=== PATIENT | female | born 2000 | race Caucasian/White ===

== ENCOUNTER 2024-07-30 20:21 | Outpatient (REF) | payer BC, SELFPAY ==
[2024-08-05 15:08] LABS: Age Gdln ACOG Testing Note (.); IGP, rfx Aptima HPV ASCU Note (.)
== END 2024-07-30 20:22 | disposition home or self-care (01) ==
LOC: LAB 20:21
PROVIDERS: Family Provider Family Medicine; Visit Provider Physician Assistant
DX: Z01.419 Encounter for gynecological examination (general) (routine) without abnormal findings (principal)
CPT/HCPCS: 88175

== ENCOUNTER 2025-04-29 09:29 | Outpatient (OUT) | payer BC, SELFPAY ==
--- OUTSIDE RECORDS SUMMARY | 2023-11-29 04:45 | XMS_ITS ---
Author Organization [facility] Servic es Address [address] [place] [address] Care Team Providers Care Yardmaster Name Role Phone Brittany Callaway Primary Care Provider [phone] Susan Resendiz [phone] REASON FOR VISIT 2 month follow up Encounters Encounter Location Date Provider Diagnosis [facility] Services [address] [place] [address] 11/29/2023 Brittany Callaway Plan Of Treatment No Information Progress Notes * NICOLE CHOUDHURYDOB:2000 (25 yo F)Acc No.[id number]:11/29/2023 Behavioral Health Patient: NICOLE GIBBS Provider:?Brittany CallawayDOB:2000???Age:23 Y ???Sex:FemaleDate:11/29/2023hone:[phone]:[address] [place], [place] Subjective: * Chief Complaints: * 2 month follow up Billing Information: * Procedure Codes: * Electronic signature of JEY Rizvi on 04/29/2025 at 08:17 AM ESTSign off status: Pending * Appointment Provider: Lakesha Callaway Date: 0 11/29/2023 Generated for Printing/Faxing/eTransmitting on:?04/29/2025 08:17 AM EST
--- OUTSIDE RECORDS SUMMARY | 2023-12-11 11:15 | XMS_ITS ---
Author Organization [facility] Servic es Address [address] [place] [address] Care Team Providers Care Injection Molding Machine Setter Name Role Phone Brittany Callaway Primary Care Provider [phone] Susan Resendiz [phone] REASON FOR VISIT rs from 11/28 2 mo f/u Encounters Encounter Location Date Provider Diagnosis [facility] Services [address] [place] [address] 12/11/2023 rBittany Callaway Plan Of Treatment No Information Progress Notes * ANGELA CHOUDHURY:2000 (25 yo F)Acc No.[id number]:12/11/2023 Behavioral Health Patient: NICOLE GIBBS Provider:Niya SotoB:2000???Age:23 Y ???Sex:FemaleDate:12/11/2023hone:[phone]:[address] [place], [place] Subjective: * Chief Complaints: * R s from 11/28 2 mo f/u Billing Information: * Procedure Codes: * Electronic signature of JEY Rizvi on 04/29/2025 at 08:17 AM ESTSign off status: Pending * Appointment Provider: Lakesha Callaway Date: 0 12/11/2023 Generated for Printing/Faxing/eTransmitting on:?04/29/2025 08:17 AM EST
--- OUTSIDE RECORDS SUMMARY | 2024-02-07 03:45 | XMS_ITS ---
Author Organization [facility] Servic es Address [address] [place] [address] Care Team Providers Care Corn Grower Name Role Phone Brittany Callaway Primary Care Provider Susan Resendiz [phone] REASON FOR VISIT 2 month followup Encounters Encounter Location Date Provider Diagnosis [facility] Services [address] [place] [address] 02/07/2024 Brittany Callaway Plan Of Treatment No Information Progress Notes * NICOLE CHOUDHURYDOB:2000 (25 yo F)Acc No.[id number]:02/07/2024 Behavioral Health Patient: NICOLE GIBBS Provider:?Brittany CallawayDOB:2000???Age:23 Y ???Sex:FemaleDate:4Phone:[phone]:[address] [place], [place] Subjective: * Chief Complaints: * 2 month followup Billing Information: * Procedure Codes: * Electronic signature of JEY Rizvi on 04/29/2025 at 08:17 AM ESTSign off status: Pending * Appointment Provider: Lakesha Callaway Date: 0 02/07/2024 Generated for Printing/Faxing/eTransmitting on:?04/29/2025 08:17 AM EST
--- OUTSIDE RECORDS SUMMARY | 2024-02-13 05:15 | XMS_ITS ---
Author Organization [facility] Servic es Address [address] [place] [address] Care Team Providers Care Law Researcher Name Role Phone Brittany Callaway Primary Care Provider Susan Resendiz [phone] REASON FOR VISIT BH F/U Encounters Encounter Location Date Provider Diagnosis [facility] Services [address] [place] [address] 02/13/2024 Brittany Callaway Plan Of Treatment No Information Progress Notes * NICOLE CHOUDHURYDOB:2000 (25 yo F)Acc No.[id number]:02/13/2024 Behavioral Health Patient: NICOLE GIBBS Provider:?Brittany CallawayDOB:2000???Age:23 Y ???Sex:FemaleDate:02/13/2024hone:[phone]:[address] [place], [place] Subjective: * Chief Complaints: * B H F/U Billing Information: * Procedure Codes: * Electronic signature of JEY Rizvi on 04/29/2025 at 08:17 AM ESTSign off status: Pending * Appointment Provider: Lakesha Callaway Date: 0 02/13/2024 Generated for Printing/Faxing/eTransmitting on:?04/29/2025 08:17 AM EST
--- OUTSIDE RECORDS SUMMARY | 2025-04-29 08:30 | XMS_ITS | Encounter Summary ---
Author Organization [facility] Address [address] [place] [facility] [place] [address] Care Team Providers Care Softball Core Molder Name Role Phone Hanane Antonio MD Primary Care Provider [phone] Brittany Calderon SCOOPING MACHINE TENDER Unavailable [phone] Reason for Visit * ReasonCommentsDysmenorrhea Encounter Details DateTypeDepartmentCare Team (Latest Contact Info)Vuiyflwfgic62/05/2025 8:30 AM ESTOffice Visit [facility]OMDe[facility] [address] [address] Bebe Bishop PA [address] [facility] [address] [place], [place] [id number] Dysmenorrhea; Menorrhagia with regular cycle Social History Tobacco UseTypesPacks/DayYears UsedDateSmoking Tobacco: NeverSmokeless Tobacco: NeverAlcohol UseStandard Drinks/WeekCommentsYes2 (1 standard drink = 0.6 oz pure alcohol)Humiliation, Afraid, Rape, and Kick questionnaireAnswerDate Recorded Within the last year, have you been afraid of your partner or ex-partner?No 06/12/2023Within the last year, have you been humiliated or emotionally abused in other ways by your partner or ex-partner?No06/12/2023Within the last year, have you been kicked, hit, slapped, or otherwise physically hurt by your partner or ex-partner?No06/12/2023Within the last year, have you been raped or forced to have any kind of sexual activity by your partner or ex-partner?No06/12/2023 Social Connection and Isolation PanelAnswerDate RecordedIn a typical week, how many times do you talk on the phone with family, friends, or neighbors?More than three times a week06/12/2023How often do you get together with friends or relatives?Twice a week06/12/2023How often do you attend pentecostalism or jew services?More than 4 times per year06/12/2023o you belong to any clubs or organizations such as pentecostalism groups, unions, fraternal or athletic groups, or school groups?No06/12/2023How often do you attend meetings of the clubs or organizations you belong to?Never06/12/2023re you , , , , never , or living with a partner?Patient ngnznhco22/19/2023 AUDIT-CAnswerDate RecordedQ1: How often do you have a drink containing alcohol? 2-4 times a month06/12/2023Q2: How many drinks containing alcohol do you have on a typical day when you are drinking?3 or Q3: How often do you have six or more drinks on one occasion?Less than hhqgqjy9406/12/2023Overall Financial Resource Strain (CARDIA)AnswerDate RecordedHow hard is it for you to pay for the very basics like food, housing, medical care, and heating?Not hard at all 06/12/2023HQ-2AnswerDate RecordedPatient Health Questionnaire-2 Score0 06/12/2023Fincentral [facility] medical center [place] of Occupational Health - Occupational Stress QuestionnaireAnswerDate RecordedDo you feel stress - tense, restless, nervous, or anxious, or unable to sleep at night because yourmind is troubled all the time - these days?Only a meiynz7706/12/2023Exercise Vital SignAnswerDate Recorded On average, how many days per week do you engage in moderate to strenuous exercise (like a brisk walk)?5 days06/12/2023On average, how many minutes do you engage in exercise at this level?90 min06/12/2023Hunger Vital SignAnswerDate RecordedWithin the past 12 months, you worried that your food would run out before you got the money to buymore.Never true06/12/2023Within the past 12 months, the food you bought just didn't last and you didn't have money to get more.Never true06/12/2023RAPARE - TransportationAnswerDate RecordedIn the past 12 months, has lack of transportation kept you from medical appointments or from getting medications?No06/12/2023In the past 12 months, has lack of transportation kept you from meetings, work, or from getting things needed for daily living?No06/12/2023Housing Stability Vital SignAnswerDate RecordedIn the last 12 months, was there a time when you were not able to pay the mortgage or rent on time?No06/12/2023In the last 12 months, how many places have you lived?1 06/12/2023In the last 12 months, was there a time when you did not have a steady place to sleep or slept in [facility] (including now)?No06/12/2023Comments NoSex and Gender InformationValueDate RecordedSex Assigned at BirthFemale 08/06/2023 11:59 AM ESTLegal DimGydvvk57/15/2023 7:05 PM EDTGender Identity Jrxsdv2709/06/2022 7:05 PM EDTSexual OlzmdshdafaTsbjcowe03/12/2024 11:59 AM EST documented as of this encounter Last Filed Vital Signs Vital SignReadingTime TakenCommentsBlood Mmsmhntv616/6004/29/2025 8:28 AM EST Pulse--Temperature--Respiratory Rate--Oxygen Saturation--Inhaled Oxygen Concentration--Fzxgaa15.9 kg (136 lb 8 oz)04/29/2025 8:28 AM ESTHeight--Body Mass Index20.7507 1:03 PM EDTdocumented in this encounter Plan of Treatment DateTypeDepartmentCare Team (Latest Contact Info)Zberdzjryms02/09/2026 10:00 AM ESTOffice Visit [facility] [address] [address] Bebe Bishop PA [address] [facility] [facility] [place] [address] NameTypePriorityAssociated DiagnosesOrder ScheduleCBC and differentialLabRoutine Menorrhagia with regular cycle Ordered: 04/29/2025TSHLabRoutine Menorrhagia with regular cycle Ordered: 04/29/2025hCG, quantitative, pregnancyLabRoutine Menorrhagia with regular cycle Ordered: 04/29/2025Protime-INRLabRoutine Menorrhagia with regular cycle Ordered: 04/29/2025T4, freeLabRoutine Menorrhagia with regular cycle Ordered: 04/29/2025PTTLabRoutine Menorrhagia with regular cycle Expected: 04/29/2025 (Approximate), Expires: 04/29/2026Hemoglobin Q4aVvzTvfbono Menorrhagia with regular cycle Ordered: 04/29/2025US Pelvis w/ TVImagingRoutine Menorrhagia with regular cycle Expected: 04/29/2025, Expires: 04/29/2026documented as of this encounter Visit Diagnoses Diagnosis Dysmenorrhea Menorrhagia with regular cycle documented in this encounter Additional Health Concerns AssessmentNoted TimePHQ-9 Depression Total Score: 10:56 AM EST documented as of this encounter Care Teams Team MemberRelationshipSpecialtyStart DateEnd Hanane Antonio MD [address] [place] [address] PCP - GeneralFamily Medicine10/31/22 Brittany Calderon NP [address] [place] [address] Nurse PractitionerFamily Medicine02/19/25documented as of this encounter
--- OUTSIDE RECORDS SUMMARY | 2025-04-29 09:37 | XMS_ITS | Clinical Summary ---
Author Organization [facility] Address [address] [facility] [place] [address] Care Team Providers Care Body Former Name Role Phone Hanane Antonio MD Primary Care Provider Brittany Calderon CIRCULATION ASSISTANT Unavailable [phone] Allergies Active AllergyReactionsCriticalityNoted OaffLwcxeqjaFonkhqwbieKaxmPon93/24/2023 Medications No known medications Active Problems ProblemNoted DateDiagnosed GgujOagffqq31/19/2023islocation of left patella 06/12/2023ttention deficit hyperactivity disorder, combined type06/12/2023 Recurrent major depressive disorder, in partial xmguoktut30/19/2023 Resolved Problems ProblemNoted DateDiagnosed DateResolved DateAcute pain of left knee06/12/2023 06/12/2023Heavy nlhogrl13 Encounters DateTypeDepartmentCare YhosGabvqigtbio25/05/2025 8:30 AM ESTOffice Visit [facility] [address] [place] [address] [place] [address] Bebe Bishop PA Dysmenorrhea; Menorrhagia with regular cycle04/29/2025amboo flowsheet [facility] [address] [place] [address] Bebe Bishop PA 02/19/2025Travelfrom Last 3 Months Immunizations ImmunizationAdministration DatesNext SknZNqE6302/23/2006DTaP / Hep B / IPV 07/15/2003DTaP, Rxazpxchefa72/17/2005,02/05/2002Hep B, Adolescent or Pediatric 12/09/2004Hib (PRP-T)07/15/2003Hib / Hep B002/05/2002IPV09,12/09/2004, 02/05/2002Influenza, Injectable, MDCK, preservative free05/07/2024Influenza, injectable, quadrivalent, preservative free06/12/2023Influenza, seasonal, wnuhlvuotp02/15/2007,04/23/2006MMR08/07/2023,02/23/2006,08/12/2003PPD Test 06/19/2023,06/12/2023neumococcal Conjugate PCV 7012/09/20047162Xurs79/19/2023 Lrcfokxuh18/24/2009,12/09/2004 Family History Medical HistoryRelationNameCommentsAlcohol abuseMaternal GrandfatherOle Pappy AdenomyosisMotherEndometriosisMotherOvarian cystsMotherAlcohol abuseMother's Sister 1RaeNasl polypsOtherRelationNameStatusCommentsFatherAliveMaternal GrandfatherOle PappyAliveMotherAliveMother's Sister 1RaeAliveMother's Sister 2 RaeAliveOtherFamily history Social History Tobacco UseTypesPacks/DayYears UsedDateSmoking Tobacco: NeverSmokeless [...] relatives?Twice a week06/12/2023How often do you attend rastafari or baptism services?More than 4 times per year06/12/2023o you belong to any clubs or organizations such as rastafari groups, unions, fraternal or athletic groups, or school groups?No06/12/2023How often do you attend meetings of the clubs or organizations you belong to?Never06/12/2023re you , , , , never , or living with a partner?Patient izsrjngr61/19/2023 AUDIT-CAnswerDate RecordedQ1: How often do you have a drink containing alcohol? 2-4 times a month06/12/2023Q2: How many drinks containing alcohol do you have on a typical day when you are drinking?3 or Q3: How often do you have six or more drinks on one occasion?Less than aypgmoq6906/12/2023Overall Financial Resource Strain (CARDIA)AnswerDate RecordedHow hard is it for you to pay for the very basics like food, housing, medical care, and heating?Not hard at all 06/12/2023HQ-2AnswerDate RecordedPatient Health Questionnaire-2 Score0 06/12/2023Finheber valley medical center [place] of Occupational Health - Occupational Stress QuestionnaireAnswerDate RecordedDo you feel stress - tense, restless, nervous, or anxious, or unable to sleep at night because yourmind is troubled all the time - these days?Only a ofdqpr0806/12/2023Exercise Vital SignAnswerDate Recorded On average, how many [...] steady place to sleep or slept in [place] (including now)?No06/12/2023Comments NoSex and Gender InformationValueDate RecordedSex Assigned at BirthFemale 08/06/2023 11:59 AM ESTLegal QrdVbheap75/15/2023 7:05 PM EDTGender Identity Ribwcl0909/06/2022 7:05 PM EDTSexual IxchtcukborEsdldjsw64/12/2024 11:59 AM EST Last Filed Vital Signs Vital SignReadingTime TakenCommentsBlood Rmwmasts996/6004/29/2025 8:28 AM EST Yoyhh15052/28/2025 9:01 AM TEAZbuhvcsvple76.2 ??C (98.9 ??F)07/22/2024 9:01 AM ESTRespiratory Rate--Oxygen Cpjvxbjtob81%07/22/2024 9:01 AM ESTInhaled Oxygen Concentration--Yizkvn33.9 kg (136 lb 8 oz)04/29/2025 8:28 AM UGPTgrfki843.7 cm (5' 8 )12/23/2024 1:03 PM EDTBody Mass Index20.7507 1:03 PM EDT Plan of Treatment DateTypeDepartmentCare Team (Latest Contact Info)Xxqyxkvyzmu22/09/2026 10:00 AM ESTOffice Visit [facility] [address] [place] [address] [place] [address] Bebe Bishop PA [address] [place] [address] [place] [address] Health MaintenanceDue DateLast DoneCommentsCOVID-19 Vaccine (2023- season) Influenza Vaccine (#1), 06/12/2023, 05/09/2007, Additional history existsPneumococcal Vaccine: Pediatrics (0 to 5 Years) and At-Risk Patients (6 to 64 Years)Aged Out12/09/2004No longer eligible based on patient's age to complete this topic Insurance Care Teams Team MemberRelationshipSpecialtyStart DateEnd Date Hanane Antoino MD [address] [facility] [place] [place] [id number] PCP - GeneralFamily Medicine10/31/22 Brittany Calderon NP [address] [place] [address] Nurse PractitionerFamily Medicine02/19/25
--- OUTSIDE RECORDS SUMMARY | 2025-04-29 09:37 | XMS_ITS | Patient Health Record ---
Author Organization [facility] Servic es Address [address] [place] [address] Care Team Providers Care Ell Tutor Name Role Phone Brittany Callaway Primary Care Provider [phone] Susan Resendiz Estuardo [phone] Allergies No Known Allergies Reason For Referral No Information Medications Medication SIG (Take, Route, Frequency, Duration) Notes Start Date End Date Status busPIRone HCl 5 MG Tablet 1 tablet Orally Twice a day; Duration: 14 days 4ActiveEscitalopram Oxalate 10 MG Tablet1 tablet Orally Once a day; Duration: 30 days12/14/2023ctivetraZODone HCl 50 MG Tablet1 tablet at bedtime as needed Orally Once a day; Duration: 30 days3ActiveMinocycline HCl Not-Taking/PRNTretinoin 0.025 % Cream1 application in the evening to face ExternallyNot-Taking/PRN Social History Tobacco Use: Social History Observation Description Date Details (start date - stop date) Never Smoker NA - NA Social History GeneralSocial InfoQuestionAnswerNotesDepression Screening (PHQ-9):Little interest or pleasure in doing thingsNot at allFeeling down, depressed, or hopelessNot at allTrouble falling or staying asleep, or sleeping too muchNot at allFeeling tired or having little energyNot at allPoor appetite or overeatingNot at allFeeling bad about yourself-or that you are a failure or have let yourself or your family downNot at allTrouble concentrating on things, such as reading the newspaper or watching televisionNot at allMoving or speaking so slowly that other people could have noticed. Or the opposite being so fidgetyor restless that you have been moving around a lot more than usualNot at allThoughts that you would be better off , or of hurting yourself in some wayNot at allTotal Jnnnu5Kpnccyx Screen:Are you a:never smokerAlcohol Screening:Did you have a drink containing alcohol in the past year?YuPithic9ZoivyicywzctfrFkhhazpo Problems Problem Type SNOMED Code ICD Code Onset Dates Problem Status W/U Status Risk Notes Problem Anxiety (83172222) Anxiety (F41.9) ActiveconfirmedProblemAttention deficit hyperactivity disorder (949181425)ADHD (attention deficit hyperactivity disorder), combined type (F90.2)Activeconfirmed ProblemRecurrent major depression (52208679)Major depressive disorder, recurrent episode with anxious distress (F33.9)Activeconfirmed Plan Of Treatment No Information Insurance Providers Payer Name Payer Address Payer Phone Subscriber Number Group Number Insured Name Patient Relationship to Insured Coverage Start Date Coverage End Date ANTHEM Primary [address] [place] [phone] [id number] LEO CHOUDHURY Child - Insured has Financial Responsibility 0 Medical (General) History Surgical History Surgery Date(Month/Year) wisdom teeth extraction 01/2019
--- OUTSIDE RECORDS SUMMARY | 2025-04-29 09:37 | XMS_ITS | Encounter Summary ---
Author Organization [facility] Address [address] [facility] [place] [address] Care Team Providers Care Master Carpenter Name Role Phone Hanane Antonio MD Primary Care Provider [phone] Brittany Calderon SUPPORT COORDINATOR Unavailable [phone] Encounter Details DateTypeDepartmentCare Team (Latest Contact Info)Zvpzyayvofc36/05/2025Bamboo flowsheet [facility] [address] [place] [address] Bebe Bishop PA [address] [facility] [address] [place], [place] [id number] Social History Tobacco UseTypesPacks/DayYears UsedDateSmoking Tobacco: NeverSmokeless [...] relatives?Twice a week06/12/2023How often do you attend restoration or mormon services?More than 4 times per year06/12/2023o you belong to any clubs or organizations such as restoration groups, unions, fraaka-aki networks or athletic groups, or school groups?No06/12/2023How often do you attend meetings of the clubs or organizations you belong to?Never06/12/2023re you , , , , never , or living with a partner?Patient hbbyxhme27/19/2023 AUDIT-CAnswerDate RecordedQ1: How often do you have a drink containing alcohol? 2-4 times a month06/12/2023Q2: How many drinks containing alcohol do you have on a typical day when you are drinking?3 or Q3: How often do you have six or more drinks on one occasion?Less than wctkdpq9106/12/2023Overall Financial Resource Strain (CARDIA)AnswerDate RecordedHow hard is it for you to pay for the very basics like food, housing, medical care, and heating?Not hard at all 06/12/2023HQ-2AnswerDate RecordedPatient Health Questionnaire-2 Score0 06/12/2023Finprimary [facility] hospital [place] of Occupational Health - Occupational Stress QuestionnaireAnswerDate RecordedDo you feel stress - tense, restless, nervous, or anxious, or unable to sleep at night because yourmind is troubled all the time - these days?Only a vrcwhe9206/12/2023Exercise Vital SignAnswerDate Recorded On average, how many [...] steady place to sleep or slept in ashelter (including now)?No06/12/2023Comments NoSex and Gender InformationValueDate RecordedSex Assigned at BirthFemale 08/06/2023 11:59 AM ESTLegal VmeAeftor32/15/2023 7:05 PM EDTGender Identity Pxxjhr5309/06/2022 7:05 PM EDTSexual CoxbwlvclnlTtfqaeaz89/12/2024 11:59 AM EST documented as of this encounter Plan of Treatment DateTypeDepartmentCare Team (Latest Contact Info)Vmwbdimjkae51/09/2026 10:00 AM ESTOffice Visit [facility] [address] [address] Bebe Bishop PA [address] [facility] [address] [place], [place] [phone] documented as of this encounter Visit Diagnoses Not on filedocumented in this encounter Additional Health Concerns AssessmentNoted TimePHQ-9 Depression Total Score: 10:56 AM EST documented as of this encounter Care Teams Team MemberRelationshipSpecialtyStart DateEnd Date Hanane Antonio MD [address] [facility] [place] [address] PCP - GeneralFamily Medicine10/31/22 Brittany Calderon NP [address] [place] [address] Nurse PractitionerFamily Medicine02/19/25documented as of this encounter
--- OUTSIDE RECORDS SUMMARY | 2025-04-29 09:37 | XMS_ITS | Clinical Summary ---
Author Organization Check Sys tem Address [id number] [place] [address] Care Team Providers Care Guest Services Associate Name Role Phone Unavailable Primary Care Provider Unavailabl e Allergies Active AllergyReactionsCriticalityNoted RvzfYwzysdbwSjymcajrmyCecuJxe93/24/2023 Medications No known medications Active Problems No known active problems Family History Medical HistoryRelationNameCommentsNo Known ProblemsFatherNo Known Problems MotherRelationNameStatusCommentsFatherMother Social History Tobacco UseTypesPacks/DayYears UsedDateSmoking Tobacco: NeverSmokeless Tobacco: NeverAlcohol UseStandard Drinks/WeekCommentsYes0 (1 standard drink = 0.6 oz pure alcohol)socialChildcareAnswerDate HfvomvquQedusogviAhpdaay57/11/2019Employment AnswerDate SzwcloiwUfgdbnofhtDkjvsbt16/11/2019CommentsUnknownSex and Gender InformationValueDate RecordedSex Assigned at BirthNot on fileLegal Sex Lpynxs5701/26/2015 5:56 PM EDTGender IdentityNot on fileSexual OrientationNot on file Plan of Treatment Health MaintenanceDue DateLast DoneCommentsDTaP,Tdap and Td Vaccines (6 - Tdap) , 02/03/2004, 07/30/2003, Additional history exists Depression Eucyamglg51/03/2013dult BMI Osaisijpg92/03/2019Pap Smear2022 Tobacco Serfpnyuj50Influenza Qjbvwhk21/, 04/09/2014, 07/14/2013, Additional history exists Medical Devices Not on file Insurance
--- OUTSIDE RECORDS SUMMARY | 2025-04-29 09:50 | XMS_ITS | CCD ---
Author Organization [facility] Care Team Providers Care Director Of In Service Education Name Role Phone Xin Aviles Unavailable MD Hanane Antonio Primary Care Provider MIRNA Callaway Attending Provider ZULLY HaBRITTANY Garcia Emergency Provider Hanane Antonio MD Primary Care Provider Hanane Escobar MD Primary Care Pr ovider Neisha Martin APRN Attending Provider [phone] Hanane Escobar Primary Care Un available Neisha Martin Attending Unavailable Neisha Martin Admitting Unavailable BRITTANY HERNANDEZ Attending Unavailab BRITTANY Chavez Referring Unavailab BEBE Torres Attending Unavailable MARIA LUZ RUIZ Attending Unavailable Brittany Calderon NP Unavailable Allergies Allergy ClassificationReported Allergen(s)Allergy TypeDate of OnsetReaction(s) Facility (11 sources)TobramycinDrug Qmqfzty48-75-0587VxtmDVKZ Healthcare Medications Current Medications MedicationDrug Class(es)DatesSig (Normalized)Sig (Original)Aviane (1 source)Aviane ActivebusPIRone hydrochloride 5 mg oral tablet (7 sources)Start: 12-14-2023 End: 54-09-2190fszh 1 tablet by mouth in the morningbusPIRone (Buspar) 5 MG tablet Take 5 mg by mouth in the morning and 5 mg before bedtime. 12/14/2023 07/22/2024 Discontinued (Therapy completed)Start: 05-15-2023 End: 40-74-3602uwpm 1 tablet by mouth in the morningbusPIRone (Buspar) 10 MG tablet Take 10 mg by mouth in the morning and 10 mg before bedtime. 05/15/2023 07/22/2024 Discontinued (Therapy completed)cariprazine 1.5 mg oral capsule (1 source)Atypical AntipsychoticStart: 57-63-7203hhma 1 capsule by mouth in the morningVraylar 1.5 MG capsule Take 1 capsule by mouth in the morning. 0 05/15/2023 Activeescitalopram 10 mg oral tablet (10 sources)Serotonin Reuptake InhibitorStart: 12-14-2023 End: 59-35-0485vehs 1 tablet by mouth once dailyescitalopram (Lexapro) 10 MG tablet Take 10 mg by mouth Daily 12/14/2023 07/22/2024 Discontinued (Therapy completed)Start: 11-25-2022 End: 87-70-8817uvpo 1 tablet by mouth in the morningescitalopram (Lexapro) 20 MG tablet Take 20 mg by mouth in the morning. 05/14/2023 07/22/2024 Discontinued (Therapy completed)Start: 01-64-5098Smsqiwynmfzn Oxalate Active MG TABLET November 25, 2022 12:00amibuprofen 200 mg oral tablet (2 sources)Nonsteroidal Anti-inflammatory DrugStart: 30-01-6518npxx 2 tablets by mouth every six hours as neededIbuprofen 200 mg tablet Active 400 MG PO Every 6 hours as needed July 20, 2024 12:00ammethylPREDNISolone 4 mg oral tablet (1 source)CorticosteroidStart: 11-82-6534vcrkxcYSRTIOMibknw 4 MG as directed Orally Once a day for 6 days Dec, ActivetraZODone hydrochloride 50 mg oral tablet (7 sources)Serotonin Reuptake InhibitorStart: 11-25-2022 End: 86-18-0849ucco 1 tablet by mouth at bedtimetraZODone (Desyrel) 50 MG tablet Take 50 mg by mouth at bedtime 05/14/2023 07/22/2024 Discontinued (Therapy completed)Start: 59-82-9360Xaobjnhwp Active MG TABLET November 25, 2022 12:00am Problems Active Problems Problem ClassificationProblemDateDocumented DateEpisodic/ChronicAnxiety disorders (13 sources)Anxiety; Translations: [Anxiety disorder, unspecified]Onset: 704757-26-2878NlmneulJregflrwc-zxdjyuo, conduct, and disruptive behavior disorders (13 sources)Attention deficit hyperactivity disorder, combined type; Translations: [Attention-deficit hyperactivity disorder, combined type]Onset: 717787-09-5134FokegiwVomok of unknown origin (8 sources)Fever; Translations: [Fever, unspecified]Onset: EpisodicMalaise and fatigue (4 sources)Fatigue; Translations: [Other fatigue]46-11-0925LfgxwxyhPjjv disorders (13 sources)Recurrent major depression in partial remission; Translations: [Major depressive disorder, recurrent, in partial remission]Onset: 06-12-2023 84-22-6738GhwwffiVrzh wounds of extremities (3 sources)Laceration of hand; Translations: [Laceration without foreign body of unspecified hand, initial encounter]14-81-1642EzayykllZpxejwm on above:Problem List clean-up per request of Phys. EHR CmteOther congenital anomalies (2 sources)Porokeratosis; Translations: [Other specified congenital malformations of skin]22-18-7097DyxqrufCcqhe connective tissue disease (2 sources)Pain in both feet; Translations: [Pain in right foot]12-23-2024 EpisodicOther skin disorders (2 sources)Night sweats; Translations: [Generalized hyperhidrosis]07-20-2024 EpisodicOther skin disorders (2 sources)Generalized hyperhidrosis; Translations: [Generalized hyperhidrosis] 50-18-7039MaayfilhYancb skin disorders (2 sources)Callosity; Translations: [Corns and callosities]13-83-4817Jfjltiai Other skin disorders (2 sources)Acquired keratoderma; 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]37-79-7597IilrkqetSfkdc upper respiratory infections (2 sources)Pharyngitis; Translations: [Acute pharyngitis, unspecified]07-22-2024 Episodic Past or Other Problems Problem ClassificationProblemDateDocumented DateEpisodic/ChronicAllergic reactions (1 source)Allergic contact dermatitis due to plants, except foodOnset: 12-29-2021 Resolved: 91-10-8345VksplwhzOukmt disorders and dislocations; trauma-related (13 sources)Dislocation of patellofemoral joint; Translations: [Unspecified dislocation of left patella, initial encounter]Onset: EpisodicMenstrual disorders (13 sources)Menorrhagia; Translations: [Excessive and frequent menstruation with regular cycle]Onset: 06-12-2023 Resolved: 154165-18-2781MqbuphsRbhp disorders (13 sources)Mood disordersOnset: Other non-traumatic joint disorders (13 sources)Pain in left knee; Translations: [Pain in joint, lower leg]Onset: 06-12-2023 Resolved: 620040-09-5984Wpzwsgak Results Test NameValueInterpretationReference RangeFacilityIGP,APTIMA HPV,AGE GDLNon 73-82-5818ZNB GDLN ACOG TESTINGNote.NOMS HealthcareComment on above:TESTS RESULT FLAG UNITS REF RANGE LAB Clinician Provided Cytology Information Source.............Cervix;Endocervix No. of containers..01 ThinPrep Vial Age Algo ACOG Aspen... -24 07 FLAG LEGEND: L-Low Normal,H-High Normal,LL-Alert Low,HH-Alert High <-Panic Low,>-Panic High,A-Abnormal,AA-Critical Abnormal Performed at: 01 =[facility] [address] [place] [address] Nubia Limon MD, IGP, RFX APTIMA HPV ASCUNote.NOMS HealthcareComment on above:TESTS RESULT FLAG UNITS REF RANGE LAB DIAGNOSIS: 02 NEGATIVE FOR INTRAEPITHELIAL LESION OR MALIGNANCY. Specimen adequacy: 02 Satisfactory for evaluation. Endocervical and/or squamous metaplastic cells (endocervical component) are present. Performed by: Kodi Rivas, [employer] Specialist ([facility]) . 02 Note: Note 03 The Pap smear is a screening test designed to aid in the detection of premalignant and malignant conditions of the uterine cervix. It is not a diagnostic procedure and should not be used as the sole means of detecting cervical cancer. Both false-positive and false-negative reports do occur. Test Methodology: Note 03 This liquid based ThinPrep(R) pap test was screened with the use of an image guided system. . 02 The HPV DNA reflex criteria were not met with this specimen result therefore, no HPV testing was performed. FLAG LEGEND: L-Low Normal,H-High Normal,LL-Alert Low,HH-Alert High <-Panic Low,>-Panic High,A-Abnormal,AA-Critical Abnormal Performed at: 02 [facility] [address] [place] [address] Fatimah Holloway MD, 03 WB [facility] [address] [place] [address] Nubia Limon MD, Performed at: =G - [facility] [address] [place], [place] [id number] Bait Packer: Nubia Limon MD, Phone: [phone] Performed at: [facility] - [facility] [address], [place], [place] [id number] Bait Packer: Fatimah Holloway MD, Phone: [phone] BRUSH-SPATULA CERVIX ENDOCERVIX [facility] - Microbiology and Antimicrobial susceptibilityon 07-22-2024S. pyogenes Ag Ql (Throat)NegativeNegative, None DetectedSaint Louis University Hospital Panel Informationon 61-72-9270Hjhbicoetwpjro and review of laboratory resultsNormalECU Health Beaufort HospitalXR ABDOMEN 2 VIEWon 32-92-7629LH ABDOMEN 2 VIEWViews: 2 views in 3 images Findings: There is no free air beneath the diaphragm. There is a normal bowel gas pattern without obstruction or ileus, and no organomegaly or abnormal calcifications. Impression: No acute radiographic findings in the abdomen.NormalNot AvailableXR CHEST 2 VIEWSon 98-26-9610FE CHEST 2 VIEWSXR CHEST 2 VIEWS Reason for exam: Fever, no other complaints Technique: PA and lateral view Findings: The heart size is normal. The pulmonary vascularity is unremarkable. The lungs are fully expanded and clear. No pleural abnormalities are seen. No evidence of mediastinal or hilar enlargement. The osseous structures are intact. No soft tissue abnormalities are seen. IMPRESSION: Normal chest x-ray. 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 Fatigue. COMPARISON: None FINDINGS: SUPPORT DEVICES: None POSTSURGICAL CHANGES: None HEART: Within normal limits PULMONARY FILEMON: Within normal limits MEDIASTINUM: Unremarkable LUNGS AND PLEURA: No acute lung process, pleural effusion or pneumothorax identified. BONY STRUCTURES: Intact ADDITIONAL FINDINGS None XR/XR chest 2V* IMPRESSION: No acute process. 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 Fatigue. COMPARISON: None FINDINGS: SUPPORT DEVICES: None POSTSURGICAL CHANGES: None HEART: Within normal limits PULMONARY FILEMON: Within normal limits MEDIASTINUM: Unremarkable LUNGS AND PLEURA: No acute lung process, pleural effusion or pneumothorax identified. BONY STRUCTURES: Intact ADDITIONAL FINDINGS None XR/XR chest 2V* IMPRESSION: No acute process. Impression dictated by: Kingston Laird M.D.07/20/2024 10:48 AM Dictation Location: [facility] Transcribed By: [facility] 07/20/24 1048 Dictated By: Kingston Laird DO 07/20/24 1048 Signed By: 07/20/24 1048[facility] Physician GroupAlanine aminotransferase [Enzymatic activity/volume] in Serum or PlasmaOrdered By: Brittany Callaway on 68-67-5660TBW [Catalytic activity/Vol]17 U/L7-52[facility] HospitalAlbumin [Mass/volume] in Serum or Plasma by Bromocresol green (BCG) dye binding methoOrdered By: Brittany Callaway on 09-28-4170Udyfwet BCG dye [Mass/Vol]4.9 g/dL3.5-5.7FSt. Charles HospitalAlkaline phosphatase [Enzymatic activity/volume] in Serum or PlasmaOrdered By: Brittany Callaway on 96-79-9764JUI [Catalytic activity/Vol]42 U/T48-278MgmcanryfAkron Children'S HospitalAspartate aminotransferase [Enzymatic activity/volume] in Serum or PlasmaOrdered By: Brittany Callaway on 64-33-5483ZFK [Catalytic activity/Vol]22 U/T14-91KtjdjhoflAkron Children'S HospitalBasophils Auto (Bld) [#/Vol]Ordered By: Brittany Callaway on 89-84-6167Rljeawjyj (Bld) [#/Vol]0.0 10*3/uL0.0-0.2FSt. Charles HospitalBasophils/100 WBC Auto (Bld)Ordered By: Brittany Callaway on 10-02-2022 Basophils/100 WBC (Bld)0.7 %.[facility]S HospitalBilirubin.total [Mass/volume] in Serum or PlasmaOrdered By: Brittany Callaway on 77-68-9847Buvagdqiq [Mass/Vol]2.3 mg/dL0.3-1.0[facility]S HospitalComment on above: Samples from patients who have taken Naproxen have shown spurious elevation in Total Bilirubin levels. A metabolite of Naproxen, O-desmethylnaproxen, has been shown to interfere with the Billy-Sanjay method for measuring Total Bilirubin.Calcium [Mass/volume] in Serum or PlasmaOrdered By: Brittany Callaway on 05-69-2053Gayenfb [Mass/Vol]9.6 mg/dL8.6-10.3FSt. Charles Hospital Carbon dioxide, total [Moles/volume] in Serum or PlasmaOrdered By: Brittany Callaway on 80-31-8964ZA0 [Moles/Vol]24.7 mmol/L21.0-31.0[facility] HospitalChloride [Moles/volume] in Serum or PlasmaOrdered By: Brittany Callaway on 92-67-5859Agrsygdb [Moles/Vol]102 mmol/P26-610BdhebnoyiAkron Children'S Hospital Creatinine [Mass/volume] in Serum or PlasmaOrdered By: Brittany Callaway on 10-02-2022 Creatinine [Mass/Vol]0.96 mg/dL0.60-1.20[facility] Eosinophils Auto (Bld) [#/Vol]Ordered By: Brittany Callaway on 73-79-0609Dezsohlssav (Bld) [#/Vol]0.1 10*3/uL0.0-0.45[facility] HospitalEosinophils/100 WBC Auto (Bld)Ordered By: Brittany Callaway on 17-76-5067Czvtohtfxxz/100 WBC (Bld)1.2 %.[facility]S HospitalErythrocyte distribution width Auto (RBC) [Ratio]Ordered By: Brittany Callaway on 79-44-5581Pbodmggsgph distribution width (RBC) [Ratio]12.5 %11.9-15.3FSt. Charles HospitalFree thyroxine index Ordered By: Brittany Callaway on 02-84-9634Ruwz T4 index Calc [Mass/Vol]2.21.2-4.9 [facility]S HospitalGlobulin Calc (S) [Mass/Vol]Ordered By: Brittany Callaway 94-59-3233Zoxxjzmz (S) [Mass/Vol]2.2 g/dLAkron Children'S HospitalGlucose [Mass/volume] in Serum or PlasmaOrdered By: Brittany Callaway on 76-21-2683Wvewwyw [Mass/Vol]120 mg/kT44-098IuzkkpbkrAkron Children'S Hospital Comment on above:ADA recommended reference rangeRandom Glucose Reference Range is dependent on time and content of last meal. Glucose of more than 200 mg/dL in a nonstressed, ambulatory subject supports the diagnosisof Diabetes Mellitus. Hematocrit Auto (Bld) [Volume fraction]Ordered By: Brittany Callaway on 10-02-2022 Hematocrit (Bld) [Volume fraction]40.3 %34.0-46.4FSt. Charles HospitalHemoglobin [Mass/volume] in BloodOrdered By: Brittany Callaway on 10-02-2022 Hemoglobin (Bld) [Mass/Vol]13.9 g/dL11.8-15.4FSt. Charles Hospital Leukocytes [#/volume] corrected for nucleated erythrocytes in Blood by Automated counOrdered By: Brittany Callaway on 10-34-6849TEU corrected for nucl RBC Auto (Bld) [#/Vol]6.3 10*3/uL3.8-11.6FSt. Charles HospitalLymphocytes Auto (Bld) [#/Vol]Ordered By: Brittany Callaway on 40-62-5833Ntpvfdlbbap (Bld) [#/Vol]1.9 10*3/uL1.00-4.8[facility]S HospitalLymphocytes/100 WBC Auto (Bld) Ordered By: Brittany Callaway on 46-79-6975Sjzlhqnqhgi/100 WBC (Bld)30.0 %.[facility] Auto (RBC) [Entitic mass]Ordered By: Brittany Callaway on 32-08-8018FRC (RBC) [Entitic mass]30.4 pg24.7-34.3FSt. Charles HospitalMCHC Auto (RBC) [Mass/Vol]Ordered By: Brittany Callaway on 73-51-6768YUPW (RBC) [Mass/Vol]34.5 g/dL32.0-35.0[facility] HospitalMCV Auto (RBC) [Entitic vol]Ordered By: Brittany Callaway on 75-28-9188HUZ (RBC) [Entitic vol]88.0 fL 80-100[facility] HospitalMonocytes Auto (Bld) [#/Vol]Ordered By: Brittany Callaway on 58-23-9391Iyqioyyww (Bld) [#/Vol]0.6 10*3/uL0.0-0.8[facility] HospitalMonocytes/100 WBC Auto (Bld)Ordered By: Brittany Callaway on 40-58-4686Teporyuls/100 WBC (Bld)9.2 %.[facility] Neutrophils Auto (Bld) [#/Vol]Ordered By: Brittany Callaway on 64-21-4248Bvfkliwzmoh (Bld) [#/Vol]3.7 10*3/uL1.8-7.7FSt. Charles HospitalNeutrophils/100 WBC Auto (Bld)Ordered By: Brittany Callaway on 21-39-6854Kolybvpttoh/100 WBC (Bld)58.9 %.[facility]S HospitalNo Panel InformationOrdered By: Brittany Callaway on 50-55-2347Raockhhrt GFR (CKD-EPI)> 60.0 mL/MinAkron Children'S HospitalFree Thyroxine (T4) Direct7.6 ug/dL4.5-12.0[facility] HospitalPharmacy Creatinine Clearance (ChemN/AFSt. Charles Hospital Nucleated erythrocytes [Presence] in Blood by Automated countOrdered By: Brittany Callaway on 48-19-7395Cljigunww RBC Auto Ql (Bld)0.1 /100{WBC}0-0.5FSt. Charles HospitalPlatelet mean volume Auto (Bld) [Entitic vol]Ordered By: Brittany Callaway on 30-14-4738Bgssfnvh mean volume (Bld) [Entitic vol]9.4 fL6.3-10.7 [facility]S HospitalPlatelets Auto (Bld) [#/Vol]Ordered By: Brittany Callaway on 68-15-6992Xtiyvlgic (Bld) [#/Vol]157 10*3/cN400-751GhiwfpklnAkron Children'S HospitalPotassium [Moles/volume] in Serum or PlasmaOrdered By: Brittany Callaway on 89-35-8156Kxjjktude [Moles/Vol]3.9 mmol/L3.5-5.1FSt. Charles HospitalProtein [Mass/volume] in Serum or PlasmaOrdered By: Brittany Callaway on 72-83-3590Vaijjxv [Mass/Vol]7.1 g/dL6.4-8.9[facility] HospitalRBC Auto (Bld) [#/Vol]Ordered By: Brittany Callaway on 99-74-4904TFT (Bld) [#/Vol]4.58 10*6/uL3.60-5.00White Hospitalerum or plasma 25- hydroxycalciferol measurement (mass/volume)Ordered By: Brittany Callaway on 10-02-2022 25-hydroxyvitamin D2 [Mass/Vol]<1.0 ng/mL.[facility] Comment on above:This test was developed and its performance characteristicsdetermined by [facility]. It has not been cleared or approvedby the Food and Drug Administration.Serum or plasma 25-hydroxyvitamin D measurement (mass/volume)Ordered By: Brittany Callaway on 29-47-590738273292-czivifzxhjotvb D [Mass/Vol] 28 ng/mL.[facility]S HospitalComment on above:Reference Range:All Ages: Target levels 30 - 100Serum or plasma albumin/globulin mass ratioOrdered By: Brittany Callaway on 51-34-5315Wizesyd/Globulin [Mass ratio]2.2 {ratio}White Hospitalerum or plasma anion gap determinationOrdered By: Brittany Callaway on 42-63-1288Koeke gap [Moles/Vol]12.2 mmol/L6.0-15.0White Hospitalerum or plasma calcidiol measurement (mass/volume) Ordered By: Brittany Callaway on 299291-rkmlqxbhqniufa D3 [Mass/Vol]28 ng/mL. [facility]S HospitalComment on above:This test was developed and its performance characteristicsdetermined by [facility]. It has not been cleared or approvedby the Food and Drug Administration.Performed at: ES - [employer] [address] [place], [place] [id number] Director: Doyle Okeefe MD, Phone: [phone] [Moles/volume] in Serum or PlasmaOrdered By: Brittany Callaway on 64-29-4585Yeynzu [Moles/Vol]135 mmol/G807-212AhlptwketAkron Children'S HospitalTSH DL <= 0.005 mIU/L QnOrdered By: Brittany Callaway on 84-83-5915AKX Qn1.800 m[IU]/L0.450-4.500[facility]S HospitalTriiodothyronine (T3) [Mass/volume] in Serum or PlasmaOrdered By: Brittany Callaway on 14-13-4756G9 [Mass/Vol]116 ng/sI26-666EiyyhqyueAkron Children'S HospitalComment on above: Performed at: [facility] LabTaylor [place] [id number] Director: Ben Almanza PhD, Phone: [phone] (T3) resin uptake testOrdered By: Brittany Callaway on 40-98-8005X4BV28 %24-39[facility]S HospitalUrea nitrogen [Mass/volume] in Serum or PlasmaOrdered By: Brittany Callaway on 93-69-3071Ovug nitrogen [Mass/Vol]14 mg/dL7-25[facility]S HospitalWBC Auto (Bld) [#/Vol]Ordered By: Brittany Callaway on 02-74-7932EWF (Bld) [#/Vol]6.3 10*3/uL3.8-11.6FSt. Charles Hospital Vital Signs Date TimeVital SignValuePerforming DhawmsvncBvtkxgsb66-72-4833 13:03-0400Body ppwcyj804.7 cmMaria Luz Ruiz DPM Work Phone: [facility] LouisPkqtitkvsc14-01-0249 13:03-0400Body mass index (BMI) [Ratio]20.53 kg/k3BidmndkMaria Luz Ruiz DPM Work Phone: [facility] LouisZzpjrswyme46-00-3863 13:03-0400Body yxwkri96.24 kgMaria Luz Ruiz DPM Work Phone: [facility] LouisYgwmcspkpj74-17-1074 11:02-0500Body mass index (BMI) [Ratio]20.95 kg/m2Bebe PETER Work Phone: [facility] LouisTakfjpvigd51-46-7921 11:02-0500Body akfcpp69.51 kgBebe Dario PETER Work Phone: [facility] LouisKsdacgmiel76-11-9491 11:02-0500Diastolic blood yolkfwld39 mm[Hg]Bebe Dario PETER Work Phone: [facility] LouisBcpnbxrlca11-04-6987 11:02-0500Systolic blood ytjnudwl517 mm[Hg]Bebe Dario PETER Work Phone: [facility] LouisNbpnvfoxem39-94-6684 09:01-0500Body mass index (BMI) [Ratio]21.47 kg/b9Qjeekljmandy Klinetrick FORESTRY PROFESSOR Work Phone: [phone] LouisGewvekktia81-55-9798 09:01-0500Body temperature 98.91 [degF]Brittany Hurtadok FORESTRY PROFESSOR Work Phone: [phone]-[facility] LouisXxruljdmpl41-17-7871 09:01-0500Body .05 kgChmandy Klinetrick FORESTRY PROFESSOR Work Phone: [phone] LouisUlolnxujnp02-65-9519 09:01-0500Diastolic blood nnrsnvyw49 mm[Hg]Brittany Hurtadok FORESTRY PROFESSOR Work Phone: [phone] LouisJvagpnmhom10-66-5020 09:01-0500Heart baau121 /min Brittany Hurtadok FORESTRY PROFESSOR Work Phone: [phone] LouisCpmhmmrmmw58-17-1807 09:01-0313KpA3% (BldA) [Mass fraction]97 %Brittany Hurtadok FORESTRY PROFESSOR Work Phone: [facility] LouisEbkbgxklua54-27-5675 09:01-0500Systolic blood mm[Hg]Brittany Hernandez FORESTRY PROFESSOR Work Phone: [phone] LouisLqfltygmtj48-06-8441 09:55-0500Body fjpsuh082.18 cmHanane Antonio MD Work Phone: [facility]01-26-2025 09:55-0500 Body mass index (BMI) [Ratio]21.9 kg/h2HvxxrxzxHanane Antonio MD Work Phone: [phone]01-26-2025 09:55-0500 Body ciizfkgvpwp82.2 [degF]Hanane Antonio MD Work Phone: [phone] [place], [place] [address]45[address]-26-2025 09:55-0500 Body tmocey45.61 kgHanane Antonio MD Work Phone: [phone] [place], [place] 1545001-26-2025 09:55-0500 Diastolic blood erubrnne10 mm[Hg]Hanane Antonio MD Work Phone: [phone] [place], [place] 1545001-26-2025 09:55-0500 Heart idwo091 /Felecia Antonio MD Work Phone: [phone] [place], [place] 1545001-26-2025 09:55-0500 Respiratory rate16 /Felecia Antonio MD Work Phone: [phone] [place], [place] 1545001-26-2025 09:55-0500 SaO2% (BldA) [Mass fraction]97 %Hanane Antonio MD Work Phone: [phone] [place], [place] 15[address]001-26-2025 09:55-0500 Systolic blood xoerztwi539 mm[Hg]Hanane Antonio MD Work Phone: [phone]06-03-2023 15:15-0400 Body pyueqpnomqv91.2 [degF]MD Hanane Antonio Work Phone: [phone]06-03-2023 15:15-0400 Diastolic blood sqohwtpz28 mm[Hg]MD Hanane Antonio Work Phone: [phone]06-03-2023 15:15-0400 Heart rate75 /minMD Hanane Antonio Work Phone: [phone] [place], [place] 15[address]006-03-2023 15:15-0400 Respiratory rate14 /minMD Hanane Antonio Work Phone: [facility]06-03-2023 15:15-0400 SaO2% (BldA) [Mass fraction]99 %MD Hanane Antonio Work Phone: [facility]06-03-2023 15:15-0400 Systolic blood ybkbklfz898 mm[Hg]MD Hanane Antonio Work Phone: [facility]07-07-2022 19:25-0400 Body .18 cmSjosé Aviles Other [facility] Other 07-07-2022 19:25-0400Body mass index (BMI) [Ratio] 25.84 kg/l5Wqkerjflxjayden Aviles Other [facility] Other 07-07-2022 19:25-0400Body kvvafumnudi42.7 [degF] Xin Aviles Other [facility] Other 07-07-2022 19:25-0400Body .84 kgStjayden Aviles Other [facility] Other 07-07-2022 19:25-0400Diastolic blood ehgbthfn35 mm[Hg] Xin Aviles Other [facility] Other 07-07-2022 19:25-0400Respiratory rate18 /minSjosé Aviles Other [facility] Other 07-07-2022 19:25-3606GfZ7% (BldA) [Mass fraction]99 % Xin Aviles Other [facility] Other 437623-32-2820 19:250400Systolic blood iocuyuts485 mm[Hg] Xin Aviles Other [place] [employer] Other Encounters Encounter DateEncounter TypeCare ProviderFacilityStart: 04-29-2025 End: 04-82-4024Aebtjw Ella PETER Work Phone: [facility] OBGYNStart: 04-29-2025 End: 82-51-9256Ktvnak Ella PETER Work Phone: [facility] [place] OBGYNStart: 12-23-2024 End: 35-12-7852Mxuwvv Gavin NUNEZM Work Phone: [facility] PODIATRYStart: 12-23-2024 End: 03-82-8614Bogsir Gavin Ruiz DPM Work Phone: noms PODIATRYStart: 12-23-2024 End: 42-08-5849Djffas outpatient new 30 minutesMaria Luz Ruiz DPM Work Phone: noms PODIATRYComment on above:Callus (Primary Dx); Porokeratosis; Pain in both feet; Acquired keratodermaStart: 12-23-2024 End: 50-91-6585zsfolxbwqwFLRXKDC W CLARKENot AvailableStart: 07-30-2024 End: 60-60-9773Zykwon Ella PETER Work Phone: noms BCP OBStart: 07-30-2024 End: 63-61-7031Ovvwle Ella PETER Work Phone: n[facility] BCP OBStart: 07-30-2024 End: 64-89-6407Afeudqfez Result EncounterBebe PETER Work Phone: noms External Department UnsolicitedStart: 07-30-2024 End: 90-62-6606Nmhdbvg encounter procedureBebe PETER Work Phone: [facility] Work Phone: Start: 07-30-2024 End: 59-41-1581Vtnlmlnp preventive med est patient 18-39 yrsBebe Melgar ROME Work Phone: noms BCP OBComment on above:Well woman exam with routine gynecological examStart: 07-30-2024 End: 34-38-3446ipcyzexyqhOKT RAMEYClaude AvailableStart: 07-23-2024 End: 75-77-1660Gdrxeq OnlyChristy A Hernandez FORESTRY PROFESSOR Work Phone: noms FNR FMComment on above:Fever, unspecified fever cause (Primary Dx)Start: 07-22-2024 End: 12-82-6730Pnpdqb flowsheetChristy A Hernandez FORESTRY PROFESSOR Work Phone: noms FNR FMStart: 07-22-2024 End: 59-32-4076Yglpny flowsheetChristy A Hernandez FORESTRY PROFESSOR Work Phone: noms FNR FMStart: 07-22-2024 End: 71-06-9695Pujvkl outpatient visit 25 minutesChristy A Hernandez FORESTRY PROFESSOR Work Phone: noms FNR FMComment on above:Fever, unspecified fever cause (Primary Dx); Pharyngitis, unspecified etiologyStart: 07-22-2024 End: 11-95-6914bpvevuuxepOEPHKSN A FITZPATRICKNot AvailableStart: 07-20-2024 End: 59-88-5035bbuhjdxymtLaklmhezHanane Antonio MD Work Phone: [facility] Work Phone: Start: 07-20-2024 End: 21-54-1771Xdgzcsi encounter procedureHanane Antonio MD Work Phone: [facility] [place] Work Phone: Start: 35-16-7677Jlhwmujzz encounterPatricia Gia Montana FORESTRY PROFESSOR Work Phone: [facility] FNR FMStart: 11-25-2022 End: 79-62-4508Hkparyekw department patient visitMD Hanane Paco Work Phone: [facility] Work Phone: Start: 10-02-2022 End: 63-53-2788kjrqetxivwGT Hanane Vargas Paco Work Phone: [facility] Work Phone: Start: 10-02-2022 End: 21-84-9951Sgufbjb encounter procedureMD Hanane Paco Work Phone: [facility] [place] Work Phone: Start: 12-29-2021 End: 90-03-7975fluuhaojkmNbhrlthlc Breault Other [facility] [place] Other Start: 01-09-0466Qkafbi outpatient new 20 minutes Xin AvilesFPG [facility] [place] Procedures DateProcedureProcedure DetailPerforming ClinicianStart: 55-88-9687UOT,APTIMA HPV,AGE GDLNAmy Dario PA Work Phone: Start: 03-97-2185Vabsqgbsd streptococcus group a Brittany Gia Hernandez FORESTRY PROFESSOR Work Phone: Start: 23-43-2738Tevmxsneuwcup (POC)Hanane Antonio MD Work Phone: Start: 14-02-7819WNI (POC)Hanane Antonio MD Work Phone: Start: 08-96-0983Ytnen chest X-rayHanane Antonio MD Work Phone: Start: 07-56-1077Ouqic X-ray of right handMD Hanane Antonio Work Phone: Plan of Treatment DateCare ActivityDetailAuthorStart: 08-03-2025 End: 36-60-2099Ywqmhlz encounter procedureNOMS BCP OBStart: 04-29-2025 End: 39-36-4791Zskbnkh encounter lgjpsmlgo62/05/2025 8:30 AM EST Office Visit NOMDerek BARTLETT [address] [place] [phone] Bebe Melgar PA [address] [place] [address] ArrivedNOMS [place] OBGYNComment on above:ArrivedStart: 02-24-2025 End: 58-34-5460Qogofzi encounter ickxjzlpt74/02/2025 4:00 PM EDT Office Visit [facility] [address] [phone] Maria Luz Ruiz, DPM [address] [place] [address] NOMS PODIATRYStart: 84-93-4392ZMFGO-19 Vaccine ( season) COVID-19 Vaccine ( season)NOMS HealthcareStart: 06-02-3736Cjktwayuh vaccinationInfluenza Vaccine (#1)NOMS HealthcareStart: 12-23-2024 End: 62-22-2942Fupptsj encounter /01/2025 1:15 PM EDT Office Visit [facility] [address] [place] [phone] Maria Luz Ruiz, DPM [address] [place] [address] ArrivedNO PODIATRYComment on above:ArrivedStart: 11-18-2024 End: 78-03-1593Uglcqdn encounter pyivxxnns40/27/2025 4:00 PM EDT Office Visit [facility] OB [address] [place] [phone] Ana Luisa Muñoz, CNM [address] [place], [place] [id number] NOMS FNR OBStart: 07-30-2024 End: 04-21-3157Wekzcso encounter procedureNOMS BCP OBComment on above:Arrived Start: 07-23-2024 End: 36-26-1631NCO W Auto Differential panel - BloodCBC and differential Lab Routine Fever, unspecified fever cause Expected: 07/23/2024 (Approximate), Expires: 07/23/2025[facility] Work Phone: Comment on above:Expected: 07/23/2024 (Approximate), Expires: 07/23/2025Start: 07-23-2024 End: 08-77-3154Wfxngxpwpvzla metabolic 2000 panel - Serum or PlasmaComprehensive metabolic panel Lab Routine Fever, unspecified fever cause Expected: 07/23/2024 (Approximate), Expires: 07/23/2025NOMS HealthcareComment on above:Expected: 07/23/2024 (Approximate), Expires: 07/23/2025Start: 07-22-2024 End: 12-51-7616Wapzgfst identified in Throat by Aerobe cultureThroat culture, comprehensive Microbiology Routine Fever, unspecified fever cause Expected: 07/22/2024 (Approximate), Expires: 07/22/2025NOMS HealthcareComment on above: Expected: 07/22/2024 (Approximate), Expires: 07/22/2025Start: 07-22-2024 End: 45-69-3424JQL W Auto Differential panel - BloodCBC and differential Lab Routine Fever, unspecified fever cause Expected: 07/22/2024 (Approximate), Expires: 07/22/2025[facility] Work Phone: Comment on above:Expected: 07/22/2024 (Approximate), Expires: 07/22/2025Start: 07-22-2024 End: 14-89-6634Msmjsrpaahgum metabolic 2000 panel - Serum or PlasmaComprehensive metabolic panel Lab Routine Fever, unspecified fever cause Expected: 07/22/2024 (Approximate), Expires: 07/22/2025NONJ HealthcareComment on above:Expected: 07/22/2024 (Approximate), Expires: 07/22/2025Start: 07-22-2024 End: 20-26-1051WJ Abdomen Single viewXR ABDOMEN 2 VIEW Imaging Routine Fever, unspecified fever cause Expected: 07/22/2024, Expires: 07/22/2025[facility] Healthcare Comment on above:Expected: 07/22/2024, Expires: 07/22/2025Start: 07-22-2024 End: 59-08-6389PX Chest 2 ViewsXR chest 2 views Imaging Routine Fever, unspecified fever cause Expected: 07/22/2024, Expires: 07/22/2025[facility] Healthcare Comment on above:Expected: 07/22/2024, Expires: 07/22/2025Start: 07-22-2024 End: 51-03-5410Ajsreym encounter evfaadywv22/28/2025 9:00 AM EST Office Visit [facility] [address] [place] [phone] Hernandez NP [address] [place] [address] Vera COLUNGA FMComment on above:ArrivedStart: 11-08-2023 End: 03-00-9794Gigdkpl encounter qhlzlavga17/16/2024 2:00 PM EDT Procedure Visit [facility] [address] [place] [phone] Ana Luisa Muñoz, CNM [address] [place] [address] MARIOS KEANU OBStart: 68-49-3041EmsxkugvbAkron [facility]S Hospital 25-hydroxyvitamin D2 [Mass/volume] in Serum or PlasmaAkron Children'S Hospital25-hydroxyvitamin D3 [Mass/volume] in Serum or PlasmaAkron Children'S Hospital25-Hydroxyvitamin D3+25-Hydroxyvitamin D2 [Mass/volume] in Serum or PlasmaAkron Children'S HospitalCytology Cervical or vaginal smear or scraping studyPap Smear Pathology and Cytology Routine Well woman exam with routine gynecological exam Ordered: 07/30/2024[facility] Work Phone: comment on above:Ordered: 07/30/2024Patient Education Laceration Repair With Stitches [facility] Work Phone: [facility] referralProtestant [facility]acon[facility] Work Phone: Thyrotropin [Units/volume] in Serum or PlasmaAkron Children'S HospitalThyroxine (T4) free index in Serum or Plasma by calculationAkron Children'S HospitalThyroxine measurementAkron Children'S HospitalTriiodothyronine (T3) [Mass/volume] in Serum or Plasma [facility] HospitalTriiodothyronine resin uptake (T3RU) in Serum or PlasmaAkron Children'S Hospital Immunizations Immunization DateImmunizationNotesCare TafvmmwfGemvnnee24-02-5497sxiruwryx, injectable, madin sheng canine kidney, preservative freeChristy Hernandez FORESTRY PROFESSOR Work Phone: [facility] LouisUmkoakfysx51-99-7721ktzmqybuy virus vaccine, unspecified formulationMaria Luz Ruiz DPM Work Phone: [facility] LouisGdetsozntb11-75-8503wsmjnfp, mumps and rubella virus vaccineChristy Hernandez FORESTRY PROFESSOR Work Phone: [facility] LouisFeuqfhznwa53-83-4547rsvkeqnznm skin test; purified protein derivative solution, intradermalPatricia Hackenburg FORESTRY PROFESSOR Work Phone: [facility] LouisElkmsffkaa08-92-1990rswvswvbx, injectable, quadrivalent, preservative freePatricia Hackenburg FORESTRY PROFESSOR Work Phone: [facility] LouisZhialabyec02-18-8086hpwrlhb toxoid, reduced diphtheria toxoid, and acellular pertussis vaccine, adsorbedPatricia Hackenburg FORESTRY PROFESSOR Work Phone: [facility] LouisCbtzythtec19-81-3269ijqbpctqfo skin test; purified protein derivative solution, intradermalPatricia Nan FORESTRY PROFESSOR Work Phone: [phone]. LouisWkdzucgmyp79-42-5018edwmwkhvn virus vaccine Radha Nan FORESTRY PROFESSOR Work Phone: [phone] [place], [place] [address]Tiafqvqowg22-28-0042nfewfjdjp, seasonal, injectablePatricia Habaenburg FORESTRY PROFESSOR Work Phone: [phone] [place], [place] [address]Qrgsltkdox14-21-3669vohzygaao, seasonal, injectablePatricia Habaenburg FORESTRY PROFESSOR Work Phone: [phone] [place], [place] [address]Fjjddukniq85-84-4004kkfduvoyye, tetanus toxoids and acellular pertussis vaccinePatricia Alejoburg FORESTRY PROFESSOR Work Phone: [phone] [address] StreetTtykiupvpu52-81-1154txusmtt, mumps and rubella virus vaccinePatricia Alejoburg FORESTRY PROFESSOR Work Phone: [phone] [place], [place] [address]Bzpnuueqhd48-86-4877kdlnxmylme vaccine, inactivatedPatricia Nan FORESTRY PROFESSOR Work Phone: [phone] LouisRxpqhyympl87-72-8454nzategezbo, tetanus toxoids and acellular pertussis vaccine, unspecified formulationPatricia Nan FORESTRY PROFESSOR Work Phone: [phone]. LouisXniurklpdn39-10-6983bgnsqldci B vaccine, pediatric or pediatric/adolescent dosagePatricia Nan FORESTRY PROFESSOR Work Phone: [phone]. LouisQmjthpktbj60-47-9948lgefzmlqyhgx conjugate vaccine, 7 valentPatricia Nan FORESTRY PROFESSOR Work Phone: [phone]. LouisNrudmnddhm36-29-2054ezckbwpqfa vaccine, inactivatedPatricia Nan FORESTRY PROFESSOR Work Phone: [phone]. LouisTfbdequmeo98-85-2308qyymcrumg virus vaccine Radha Nan FORESTRY PROFESSOR Work Phone: [phone]. LouisMcxbwlnmkx96-78-4721qfxvolm, mumps and rubella virus vaccinePatricia Alejoburg FORESTRY PROFESSOR Work Phone: [facility] LouisIljzdczdde11-85-1984YToB-kyahjjgrr B and poliovirus vaccinePatricia Hayvesburg FORESTRY PROFESSOR Work Phone: [facility]. LouisIlharbozgh61-08-9482cszrihiptso influenzae type b vaccine, PRP-T conjugateOur Lady Of Bellefonte Hospitaltroy [facility] FORESTRY PROFESSOR Work Phone: [facility] St. LouisLgjjpuftcw54-60-1391xkvgirvhug, tetanus toxoids and acellular pertussis vaccine, unspecified formulationParobley rex va medical centeria yvesgreater baltimore medical center FORESTRY PROFESSOR Work Phone: NOEllis Fischel Cancer CenterHelamqzqug60-42-4940iynaiehhzgb influenzae type b conjugate and Hepatitis B vaccineAstra Health Center FORESTRY PROFESSOR Work Phone: [facility] LouisHjwlplagvm01-98-4935zcwbskrjtz vaccine, inactivatedPaFort Memorial Hospital FORESTRY PROFESSOR Work Phone: [facility] Payers DatePayer CategoryPayerPolicy [id number] Cross Blue ShieldBCBS Member Subscriber Plan / Payer (Effective 2019-Present) Name: Mana Coreas Relation to Subscriber: Child Name: MACEYLEO Date of : 1979 (Home) Address: [address] [place] [id number] Payer ID: Not on file Type: Not on file Address: [address] [place] [id number] BCBS BCBS [id number] 2019-Present [phone] [address] [place] [id number] Navajo Medical [id number] 2.0.1.514146.3.57[id number] 2.0.1.202563.3.57[id number] 2..0.1.322870.3.57[id number] 2.0.1.627679.3.57[id number] 2..0.1.918209.3.579.2.1259Private Health InsuranceWayne Healthcare Main [id number] [id number]ker's CompensationIndustrial Self Ins Misc [id number] Social History DateTypeDetailFacilityUnknown if ever smokedNocolumbia regional hospital [place] Other Start: 06-12-2023 End: 36-21-8131Ptg Assigned At [facility] HealthcareStart: 57-92-7547Brq Assigned At [facility] Hospitaltart: 11-25-2022 End: 28-22-2621Pkyvdat smoking status NHISNever smoked tobacco (finding) [facility] Hospital[facility]art: 80-45-6484Lebatez use and exposure Smokeless tobacco non-userNONJ HealthcareStart: 06-12-2023 End: 30-47-5340Pqfbani intakeCurrent drinker of alcohol (finding)[facility] Healthcare Start: 06-12-2023 End: 25-75-7785Aucleoz of Social functionNOMS HealthcareWithin the last year, have you been afraid of your partner or ex-partner?NoNOMS HealthcareAre you now , , , , never or living with a partner? RefusedNOMS HealthcareHow often to you have a drink containing alcohol?2-4 times a monthNOMS HealthcareHow many standard drinks containing alcohol do you have on a typical day?3 or 4NOMS HealthcareHow often do you have 6 or more drinks on 1 occasion?Less than monthlyNONJ HealthcareStart: 80-57-0146Utm hard is it for you to pay for the very basics like food, housing, medical care, and heatingNot hard at allNOMS HealthcareDo you feel stress - tense, restless, nervous, or anxious, or unable to sleep at night because yourmind is troubled all the time - these days [OSQ]Only a littleNOMS Healthcare(I/We) worried whether (my/our) food would run out before (I/we) got money to buy more.Never trueNOMS Healthcare Start: 07-01-1880Ouagkxg CommentCaffeine intake : 1-2 cups per dayNONJ HealthcareStart: 78-88-9712Sgyitw identityIdentifies as female gender (finding) [facility] HealthcareStart: 08-23-8942Itaffc orientationHeterosexual (finding)[facility] HealthcareStart: 07-20-2024 End: 16-95-3724WhnCuxskr (finding)[facility] Clinical Notes 12-29-2021 to 12-23-2024 Note Date & CwogCkdqEavpanwy25-22-4414 History of Present illness Narrative* Maria Luz Ruiz, DP - 12/23/2024 1:15 PM EDT Images from the original note were not included. Subjective Patient ID: Mana Coreas is a 24 y.o. female who presents for Callouses (Mana Coreas 24yo New Patient, presents with BL painful callouse near 5th toes. Patient has tried pumice stone.Noticed 2+ months ago. SS 9.5). HPI Patient presents complaining of calluses on both feet that are painful. She 1st noticed the calluses 2 months ago. She states in August she went from working part-time at [employer] to working full-time at [employer]. She thinks that the increase in her work hours as well as wearing older tennis shoes contributed to the formation of the calluses. They are painful for her. She is triedpumice stone without much relief. She has since purchased new shoes Review of Systems Medications No current outpatient medications on file. Allergies Tobramycin Past Surgical History Past Surgical History: Procedure Laterality Date PICC LINE INSERTION WISDOM TOOTH EXTRACTION 02/16/2019 Family History Family History Problem Relation Name Age of Onset Other (Nasl polyps) Other Alcohol abuse Maternal Grandfather Ole Pappy Alcohol abuse Mother's Sister Shaniqua Objective Physical Exam Constitutional: Appearance: Normal appearance. HENT: Head: Normocephalic and atraumatic. Cardiovascular: Comments: Pedal pulses: DP 2/4 bilateral, PT 2/4 bilateral. Skin temp is warm to warm. Varicosities: absent Hair growth: present Pulmonary: Effort: Pulmonary effort is normal. Musculoskeletal: Right lower leg: No edema. Left lower leg: No edema. Comments: MUSCLE STRENGTH: no focal deficits PAIN: sub 5th met head IPK/porokeratosis b/l Skin: General: Skin is warm and dry. Capillary Refill: Capillary refill takes 2 to 3 seconds. Findings: No bruising or erythema. Comments: SKIN FINDINGS: Feet are moist. Webspaces are clean and dry. Skin texture and turgor normal HYPERKERATOTIC LESION: sub 5th met head b/l there are diffuse hyperkeratotic lesions with central nucleated cores. No evidence of verruca or foreign body. NAIL PATHOLOGY: none Neurological: Mental Status: She is alert and oriented to person, place, and time. Comments: Light touch sensation intact 29044 Assessment/Plan ICD-10-CM 1. Callus L84 2. Porokeratosis Q82.8 3. 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 Calluses were debrided utilizing #15 surgical blade. There are deep-seated lesions that are nucleated in this area that required aggressive debriding. Debriding nonviable dermal and epidermal tissue, hyperkeratosis. Then it is also needed to remove the central nucleus of the both of these lesions. Explained the role of supportive shoes. Avoid barefeet. Recommended use of urea cream twice a day at callused areas. Dispense Dermal Therapy. Then, use pumice stone after showering. Reviewed the role of offload padding that could be added in the future with powerstep inserts, but will monitor progress to see how she does with these initial con servative measures. Pt was able to ambulate in office and relates significant pressure relief in this area. RTO 2 months This note was created with the assistance of a speech recognition program. While intending to generate a timely document that accurately reflects the content of the visit, no guarantee can be provided that every grammatical or spelling mistake has been or will be identified or corrected. Thank you for your understanding. Maria Luz Ruiz DPM documented in this encounterMercy Hospital St. [id number] History of Present illness Narrative* ROME Jurado - 07/30/2024 11:00 AM EST Reason for Appointment: Patient ID: Mana Coreas is a 24 y.o. female who presents for [facility] Women Visit Patient presents today for Annual Exam. MEDICATIONS No current outpatient medications ALLERGIES Allergies Allergen Reactions Tobramycin Rash PROBLEMS Active Ambulatory Problems Diagnosis Date Noted Anxiety 06/12/2023 Dislocation of left patella 06/12/2023 Attention deficit hyperactivity disorder, combined type ([facility]/H[facility]) 06/12/2023 Recurrent major depressive disorder, in partial remission (HCC) ([facility]) 06/12/2023 Resolved Ambulatory Problems Diagnosis Date Noted Acute pain of left knee 06/12/2023 Heavy periods 06/12/2023 Past Medical History: Diagnosis Date Pneumonia RSV (respiratory syncytial virus infection) HISTORY PAST MEDICAL HISTORY SOCIAL HISTORY Past Medical History: Diagnosis Date Pneumonia RSV (respiratory syncytial virus infection) Social History Tobacco Use Smoking status: Never Smokeless tobacco: Never Substance Use Topics Alcohol use: Yes Alcohol/week: 3.0 - 4.0 standard drinks of alcohol Types: 3 - 4 Standard drinks or equivalent per week Drug use: Never FAMILY HISTORY Family History Problem Relation Name Age of Onset Other (Nasl polyps) Other SURGICAL HISTORY Past Surgical History: Procedure Laterality Date PICC LINE INSERTION WISDOM TOOTH EXTRACTION 02/16/2019 REVIEW OF SYSTEMS Review of Systems: Review of Systems Constitutional: Negative. HENT: Negative. Eyes: Negative. Respiratory: Negative. Cardiovascular: Negative. Gastrointestinal: Negative. Genitourinary: Negative. Musculoskeletal: Negative. Skin: Negative. Neurological: Negative. All other systems reviewed and are negative. Hematological: Negative. Endocrine: Negative. Allergic/Immunologic: Negative. OBJECTIVE Objective: Physical Exam Constitutional: Appearance: Normal appearance. She is well-developed. Genitourinary: Vulva normal. Right Adnexa: not tender and no mass present. Left Adnexa: not tender and no mass present. No cervical discharge. Breasts: Breasts are soft. Right: Normal. Left: Normal. HENT: Head: Normocephalic. Nose: Nose normal. Mouth/Throat: Mouth: Mucous membranes are moist. Cardiovascular: Rate and Rhythm: Normal rate and regular rhythm. Pulmonary: Effort: Pulmonary effort is normal. Breath sounds: Normal breath sounds. Abdominal: General: Bowel sounds are normal. There is no distension. Palpations: Abdomen is soft. Tenderness: There is no abdominal tenderness. There is no guarding or rebound. Musculoskeletal: General: No swelling. Normal range of motion. Cervical back: Normal range of motion. Right lower leg: No edema. Left lower leg: No edema. Neurological: General: No focal deficit present. Mental Status: She is alert and oriented to person, place, and time. Skin: General: Skin is warm and dry. Psychiatric: Mood and Affect: Mood normal. Behavior: Behavior normal. Vitals and nursing note reviewed. Exam conducted with a bioassayist present. Vitals: Estimated body mass index is 20.95 kg/m as calculated from the following: Height as of 06/12/23: 5' 8 . Weight as of this encounter: 137 lb 12.8 oz. BP: 110/76 Patient's last menstrual period was 07/20/2024. ASSESSMENT & PLAN ICD-10-CM 1. Well woman exam with routine gynecological exam Z01.419 Pap Smear Annual Exam: Patient presents today for an annual exam. Patient states she is doing well and has no complaints. Pap was obtained without difficulty. No orders of the defined types were placed in this encounter. Follow Up: Patient is to return in one year for annual unless needed otherwise. Documented by Mel Cardoza MA on behalf of: ROME Jurado documented in this encounterMercy Hospital St. [id number] History of Present illness Narrative* Brittany Vasquezpatrick, FORESTRY PROFESSOR - 07/22/2024 9:00 AM EST Images from the original note were not included. Mana Coreas is a 24 y.o. female presents with chief complaint of URI HPI: Patient is here for sx of a fever that started last Sunday night. Patient went to urgent care in [place] yesterday and was tested for mono, pneumonia, flu, rsv, covid, and uti that all came back negative. Has been taking ibuprofen, vitamin d and zinc. SUBJECTIVE: MEDICATIONS: ALLERGIES No current outpatient medications Allergies Allergen Reactions Tobramycin Rash PAST MEDICAL HISTORY: SOCIAL HISTORY SURGICAL HISTORY: Past Medical History: Diagnosis Date Pneumonia RSV (respiratory syncytial virus infection) Social History Tobacco Use Smoking status: Never Smokeless tobacco: Never Substance Use Topics Alcohol use: Yes Alcohol/week: 3.0 - 4.0 standard drinks of alcohol Types: 3 - 4 Standard drinks or equivalent per week Drug use: Never Past Surgical History: Procedure Laterality Date PICC LINE INSERTION WISDOM TOOTH EXTRACTION 02/16/2019 REVIEW OF SYMPTOMS: Review of Systems Constitutional: Positive for fever. Negative for fatigue. HENT: Negative. Respiratory: Negative. Cardiovascular: Negative. Gastrointestinal: Negative. Genitourinary: Negative. Musculoskeletal: Negative. Skin: Negative. All other systems reviewed and are negative. OBJECTIVE: There were no vitals filed for this visit. Physical Exam Vitals reviewed. HENT: Mouth/Throat: Mouth: Mucous membranes are moist. Pharynx: Posterior oropharyngeal erythema present. Cardiovascular: Rate and Rhythm: Normal rate and regular rhythm. Pulses: Normal pulses. Heart sounds: Normal heart sounds. Pulmonary: Effort: Pulmonary effort is normal. Breath sounds: Normal breath sounds. Abdominal: General: Abdomen is flat. Bowel sounds are normal. Palpations: Abdomen is soft. Musculoskeletal: General: Normal range of motion. Skin: General: Skin is warm and dry. Neurological: General: No focal deficit present. Mental Status: She is oriented to person, place, and time. ASSESSMENT AND PLAN: Assessment/Plan Diagnoses and all orders for this visit: Fever, unspecified fever cause - CBC and differential; Future - Comprehensive metabolic panel; Future - XR chest 2 views; Future - XR ABDOMEN 2 VIEW; Future - Throat culture, comprehensive; Future - POCT rapid strep A manually resulted Diagnoses and all orders for this visit: Fever, unspecified fever cause - CBC and differential; Future - Comprehensive metabolic panel; Future - XR chest 2 views; Future - XR ABDOMEN 2 VIEW; Future - Throat culture, comprehensive; Future - POCT rapid strep A manually resulted Await results continue to medicate with tyelnol and ibuprofen if needed. Pharyngitis, unspecified etiology-strep culture sent. Rapid strep negative No follow-ups on file. documented in [facility] [id number] Evaluation note* Diagnosis Onset Date Resolution Status Admit Date Fatigue acuteJanuary 2024 9:53amFeveracuteJanuary 2024 9:53amNight sweats acuteJanuary 2024 9:53am [facility] Work Phone: [phone]) 967-444602-12-2024 Telephone encounter Note* Telephone Encounter - Susan Hendricks - 08/06/2023 2:49 PM EST Patient called saying she had hepatitis B surface antibody done in May. 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 [id number] Miscellaneous Notes* Telephone Encounter - Susan Hendricks - 08/06/2023 2:49 PM EST Patient called saying she had hepatitis B surface antibody done in May. 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 Thank you documented in [facility] encounterMer[facility] [id number] Evaluation note* Encounter Date Diagnosis Assessment Notes Treatment Notes Treatment Clinical Notes Dec, Poison ann-marie dermatitis (ICD-10 - L23.7) Take medications as directed. Complete all doses. Wash all belongings that came in contact with plant oils. Diluted dishwashing liquid will remove oils from skin very well. May try to use Calamine lotion and OTC Zyrtec for symptom relief. Follow up with primary care provider if no improvement of symptoms with treatment e-SENS Other Evaluation noteNo assessment information available [facility] Work Phone: Evaluation note* Diagnosis Onset Date Resolution Status Admit Date Fatigue acuteJanuary 2024 9:53amFeveracuteJanuary 2024 9:53amNight sweats acuteJanuary 2024 9:53am [facility] Work Phone: Evaluation note* Diagnosis Fever, unspecified fever cause- Primary Pharyngitis, unspecified etiology [facility] Diagnosis Fever, unspecified fever cause- Primary [facility] Diagnosis Well woman exam with routine gynecological exam Routine gynecological examination [facility] Diagnosis Callus- Primary Corns and callosities 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 Pain in both feet Acquired keratoderma [facility] N[facility]ative - Reported* Type Description Date Medical History Acne Surgical Historywisdom teethHospitalization HistorypneumoniaHospitalization Historyrsv [place] [facility] Other Hospital Discharge instructions Additional Instructions Sutures can be removed in 7 to 10 days Keep the wound clean and dry wash with soap and water do not use peroxide or alcohol May apply antibiotic ointment 2-3 times a day to help with healing prevent infection May take Tylenol or Motrin for discomfort See DrSammy Or return to ER for redness swelling drainage or any other concerns [facility] Work Phone: Chief Complaint and Reason for Visit Chief Complaint F33.9 Z79.899 Chief Complaint F33.9 Z79.899 hand lac @ [facility] [employer] Chief Complaint Admit Date Fever July 20, 2024 9 :53am R50.9 - Fever, unspecified July 20, 2024 10:30am Reason for Visit Admit Date Fatigue July 20, 2024 9 :53am Fever July 20, 2024 9 :53am Night sweats July 20, 2024 9 :53am Advance Directives Advance Directive Response Recorded Date/ Time Advance Directives No July 2:59pm Advance Directive Response Recorded Date/ Time Advance Directives No July 1:59pm Summary Purpose Family History No Family History Records FoundNo Family History Records Found Additional Source Comments REASON FOR VISIT (unrecogniz ed section and content) ReasonCommentsURIReasonCommentsWell Women VisitReasonCommentsCallousesOliham Coreas 24yo New Patient, presents with BL painful callouse near 5th toes. Patient has tried pumice stone.Noticed 2+ months ago. SS 9.5 Care Teams (unrecognized sec tion and content) Team Status: Active Member Role Status Dates Hanane Antonio MD Primary Care Provider Active Team Status: Inactive Member Role Status Dates Hanane Antonio MD Primary Care Provider Active Brittany Callaway , FORESTRY PROFESSOR-CAttending ProviderActive Team Status: Inactive Member Role Status Dates Hanane Antonio MD Primary Care Provider Active Ngozi Ha , ARCH CUSHION PRESS OPERATOR-BCEmergency ProviderActiveTeam MemberRelationship SpecialtyStart DateEnd Date Hanane Antonio MD [address] [place] [address] PCP - [facility]10/31/22 Team Status: Active Member Role Status Dates Hanane Antonio MD Primary Care Provide r Active Team Status: Inactive Member Role Status Dates Hanane Antonio MD Primary Care Provider Active Start: June End: July 20manda Caryn Oneil ProviderActiveStart: July 20, 2024 End: July 20, 2024 Team Status: Active Member Role Status Dates Hanane Antonio MD Primary Care Provider Active Start: June Neisha Caryn Oneil ProviderActiveStart: July 20, 2024 Team MemberRelationshipSpecialtyStart DateEnd Date Hanane Antonio MD [address] [place], [place] [id number] PCP - [facility]10/31/22Team MemberRelationshipSpecialtyStart DateEnd Date Hanane Antonio MD [address] [place] [address] PCP - [facility]10/31/22Te MemberRelationshipSpecialtyStart DateEnd Date Hanane Antonio MD [address] [place] [address] [facility] - [facility] MemberRelationshipSpecialtyStart DateEnd Date Hanane Antonio MD [address] [place] [address] PCP - [facility]10/31/22 MemberRelationshipSpecialtyStart DateEnd Date Hanane Antonio MD [address] [place] [address] PCP - [facility]10/31/22Te MemberRelationshipSpecialtyStart DateEnd Date Hanane Antonio MD [address] [place] [address] PCP - [facility]10/31/22 Brittany Calderon NP [address] [place] [address] Nurse PractitionerFamily Medicine02/19/25 Goals (unrecognized section and content) Goals may be documented in a n alternate section INFORMATION SOURCE (unrecogn ized section and content) DATE CREATED AUTHOR 07/21/2024 [facility] DATE CREATED AUTHOR DIPTI WHITFIELD 12/25/2024 [facility] EPIC FOR RECORDS PERTAINING TO PATIENTS WHO ARE OR HAVE BEEN ENROLLED IN A CHEMICAL DEPENDENCY/SUBSTANCEABUSE PROGRAM, SOME INFORMATION MAY BE OMITTED. This clinical summary was aggregated from multiple sources. Caution should be exercised in using it in the provision of clinical care. This summary normalizes information from multiple sources, and as a consequence, information in this document may materially change the coding, format and clinical context of patient data. In addition, data may be omitted in some cases. CLINICAL DECISIONS SHOULD BE BASED ON THE PRIMARY CLINICAL RECORDS. [facility] [employer] [facility]. provides no warranty or guarantee of the accuracy or completeness of information in this document.
[2025-04-29 10:12] LABS: Hematocrit 41.5 % (36.0-48.0); Hemoglobin 14.3 g/dL (12.0-16.0); Mean Corpuscular HGB Conc 34.5 g/dL (29.9-35.2); Mean Corpuscular Hemoglobin 29.8 pg (26.7-34.0); Mean Corpuscular Volume 86.5 fL (81.0-99.0); Platelet Count 161 10^3/uL (150-450); Red Blood Count 4.80 10^6/uL (4.20-5.40); White Blood Count 4.6 10^3/uL (4.0-11.0)
[2025-04-29 10:13] LABS: Immature Granulocytes Abs Auto 0.01 10^3/uL (0.00-0.03); Immature Granulocytes Pct Auto 0.2 % (0.0-0.5); Lymphocytes Absolute Auto 1.7 10^3/uL (1.2-3.8)
[2025-04-29 10:20] LABS: INR 1.20; Partial Thromboplastin Time 27.1 sec (22.3-36.2); Prothrombin Time 12.5 sec (9.0-11.6)
[2025-04-29 10:41] LABS: Thyroid Stimulating Hormone 2.688 uIU/mL (0.358-3.740)
--- NOTE | 2025-04-29 13:40 | US_ITS ---
The [address] [address] Patient Name: NICOLE CHOUDHURY MRN: [id number] date: 2000 Sex: F Assigned Patient Location: Current Patient Location: Accession/Order Number: [id number] Exam Date: 04/29/2025 13:45 Report Date: 04/30/2025 08:22 At the request of: LISET MELGAR Procedure: US pelvis w/ transvaginal ULTRASOUND PELVIS WITH TRANSVAGINAL COMPARISON: None CLINICAL DATA: Heavy, painful periods. LMP 04/08/2025. Real-time ultrasound evaluation the pelvis was performed utilizing both a transabdominal and transvaginal approach . TRANSABDOMINAL: Estimated uterine size is approximately 10.2 x 3.5 x 4.1 cm. No focal myometrial abnormalities are seen. The endometrial lining is estimated at 11-12 mm . Both ovaries are identified. TRANSVAGINAL: Transvaginal imaging was performed to better evaluate the uterus and adnexa. By this approach, no focal myometrial abnormalities are seen. The endometrial lining is estimated at 1 cm . The ovaries are again visualized. The right measures 3.4 x 2.4 x 3.4 cm. There are small follicles and potentially a complex cystic area measuring 18 x 16 x 17 mm. The left ovary measures 2.7 x 1.7 x 2.4 cm. There are additional small follicles. There is documentation of bilateral ovarian blood flow. A small amount of free fluid is visualized at the posterior cul-de-sac. US/US pelvis w/ transvaginal IMPRESSION: SMALL MILDLY COMPLICATED CYSTIC AREA WITHIN THE RIGHT OVARY MIGHT BE A CORPUS LUTEUM OF MENSTRUATION. SMALL AMOUNT OF FREE PELVIC FLUID. NO OTHER SIGNIFICANT FINDINGS. Impression dictated by: Natalia Hernandez M.D. 04/30/2025 8:22 AM Dictation Location: [place] [address] Electronically authenticated by: [id number] Y Date: 04/30/2025 08:22
== END 2025-04-29 09:30 | disposition home or self-care (01) ==
PROVIDERS: Family Provider Family Medicine; Visit Provider Physician Assistant
DX: N92.0 Excessive and frequent menstruation with regular cycle (principal); N83.291 Other ovarian cyst, right side
CPT/HCPCS: 36415; 76830; 76856; 83036; 84439; 84443; 84702; 85025; 85610; 85730